=== PATIENT | male | born 1970 | race Caucasian/White ===

== ENCOUNTER 2017-06-03 14:17 | Emergency (ER) | payer BC ==
[~2017-06-03] VITALS: Ht 185.4 cm; Wt 122.7 kg
[~2017-06-03 14:17] MED LIST: ASPIRIN 81M81 MG/TA2 PO; ASPIRIN E.C. 8181 MG PO; BENADRYL25 M2 PO; CARDI-OMEGA1000 MG PO; COZAAR100 MG PO; DILAUDID 2MG TAB2 MG PO; ELIMITE TOP; FISH OIL CONCEN1 SGL PO; GLUCOPHAGE1000 MG PO; GLUCOPHAGE500 MG PO; HCTZ 25MG TAB25 MG PO; LIPITOR 40MG TA40 MG PO; LOPID 600M600 MG/TAB PO; LOPID600 MG PO; LOPRESSOR100 MG PO; MEDROL 4MG DOSPA4 MG PO; NORVASC 5MG5 MG/TAB PO; NORVASC5 MG PO; PERCOCET 325 MG1 TA2 PO; PREDNISONE20 MG PO; VALIUM2 MG PO; ZANTAC 7575 MG PO; ZOCOR80 MG PO
[2017-06-03 14:24] VITALS: TEMP 99
[2017-06-03] MEDS ORDERED: LASIX 20MG TABL20 MG PO (14:36)
[2017-06-03] MEDS ORDERED: CANA300T PO (14:36)
[2017-06-03 14:43] LABS: BASO % 0.4 % (0.0-2.0); EOS # 0.2 (0.0-0.7); EOS % 1.9 % (0-4.0); GRAN # 5.8 (1.4-6.5); GRAN % 69.6 % (42.2-75.2); HEMATOCRIT 41.6 % (42.0-52.0); LYMPH # 1.8 (1.2-3.4); LYMPH % 21.4 % (20.0-51.0); MEAN CELL VOLUME 91 fl (80.0-100.0); MEAN CORPUSCULAR HEMOGLOBIN 31 pg (27.0-31.0); MEAN CORPUSCULAR HGB CONC 34 g/dl (33.0-37.0); MEAN PLATELET VOLUME 8.4 fl (7.4-10.4); MONO # 0.5 (0.1-0.6); MONO % 6.5 % (1.7-9.3); PLATELET COUNT 233 K/mm3 (130-400); RED BLOOD COUNT 4.55 M/mm3 (4.20-5.60); WHITE BLOOD COUNT 8.3 K/mm3 (4.8-10.8)
[2017-06-03 14:54] LABS: ADJUSTED CALCIUM 9.6 mg/dL (8.4-10.2); ALANINE AMINOTRANSFERASE 52 U/L (21-72); ALBUMIN 4.6 gm/dL (3.5-5.0); ALKALINE PHOSPHATASE 100 U/L (50-136); ANION GAP 17 mmol/L (7-16); BLOOD UREA NITROGEN 24 mg/dL (9-20); CALCIUM 10.1 mg/dL (8.4-10.2); CARBON DIOXIDE 19 mmol/L (22-30); CHLORIDE 102 mmol/L (98-107); CREATININE, serum 1.37 mg/dL (0.66-1.25); GLUCOSE 230 mg/dL (74-106); LIPASE 231 U/L (23-300); POTASSIUM 4.1 mmol/L (3.4-5.0); SODIUM 138 mmol/L (137-145); TOTAL PROTEIN 7.7 gm/dL (6.4-8.2)
[2017-06-03 15:04] LABS: B-TYPE NATRIURETIC PEPTIDE 71 pg/mL (0-125)
[2017-06-03 15:07] LABS: TROPONIN-I < 0.012 ng/mL (0.000-0.034)
[2017-06-03 19:28] VITALS: BP 111/63; PULSE 67
== END 2017-06-03 19:24 | disposition home or self-care (01) ==
LOC: COL.ER 14:17
PROVIDERS: Emergency Medicine
DX: R07.89 Other chest pain (principal); I10 Essential (primary) hypertension; E11.9 Type 2 diabetes mellitus without complications; E78.5 Hyperlipidemia, unspecified; Z79.82 Long term (current) use of aspirin; Z79.84 Long term (current) use of oral hypoglycemic drugs
CPT/HCPCS: J2060; J7030

== ENCOUNTER 2018-08-31 10:29 | Day surgery (SDC) | payer BC ==
[~2018-08-31] VITALS: Ht 185.4 cm; Wt 110.2 kg
[~2018-08-31 10:29] MED LIST changes: +CANA300T PO; +LASIX 20MG TABL20 MG PO
[2018-08-31 10:51] VITALS: BP 116/73; PULSE 61; TEMP 98.4
[2018-08-31 12:33] VITALS: BP 95/68; PULSE 64; TEMP 98.3
--- NOTE | 2018-08-31 12:33 | NUR ---
Pt returns from endo procedure. Pt ambulates from cart to recliner with RN assist. Pt alert and oriented. Monitors on and alarms set. Call light within reach. Pt requests water and crackers. Pt denies pain or nausea. present in room. Report received from MARIANNE Sandra.
[2018-08-31 12:45] VITALS: BP 94/57; PULSE 62
--- NOTE | 2018-08-31 12:45 | NUR ---
Pt taking food and drink well. No complaints voiced.
[2018-08-31 13:00] VITALS: BP 98/51; PULSE 60
--- NOTE | 2018-08-31 13:00 | NUR ---
Discharge instructions given to patient and . All questions answered to their satisfaction. Handed to them are a thank you card, discharge instructions, diagnosis information, and a discharge med sheet.
--- NOTE | 2018-08-31 13:05 | NUR ---
Pt transferred out of hospital via wheelchair and Maddy, assist, to private vehicle driven by .
[2018-09-01] MEDS ORDERED: PREDNISONE20 MG PO (16:10)
[2018-09-01] MEDS ORDERED: GREER S GOO TOP (16:10)
[2018-09-03] MEDS ORDERED: DOXYCYCLINE 10100 MG PO (19:09)
== END 2018-08-31 13:05 | disposition home or self-care (01) ==
LOC: SDCO 10:29
DX: K92.1 Melena (principal); K64.1 Second degree hemorrhoids; K59.00 Constipation, unspecified; K76.0 Fatty (change of) liver, not elsewhere classified; I10 Essential (primary) hypertension; E78.00 Pure hypercholesterolemia, unspecified; E11.9 Type 2 diabetes mellitus without complications; D64.9 Anemia, unspecified; Z79.84 Long term (current) use of oral hypoglycemic drugs; Z79.82 Long term (current) use of aspirin
CPT/HCPCS: J2250; J3010; J7030

== ENCOUNTER 2018-09-01 14:04 | Emergency (ER) | payer BC ==
[~2018-09-01] VITALS: Ht 185.4 cm; Wt 109.5 kg
[2018-09-01 14:26] VITALS: BP 116/56; PULSE 68; TEMP 98.9
[2018-09-01] MEDS ORDERED: GREER S GOO TOP (16:10)
[2018-09-01] MEDS ORDERED: PREDNISONE20 MG PO (16:10)
[2018-09-03] MEDS ORDERED: DOXYCYCLINE 10100 MG PO (19:09)
== END 2018-09-01 16:27 | disposition home or self-care (01) ==
LOC: COL.ER 14:04
DX: L20.9 Atopic dermatitis, unspecified (principal); E11.9 Type 2 diabetes mellitus without complications; I10 Essential (primary) hypertension; E78.5 Hyperlipidemia, unspecified; Z79.84 Long term (current) use of oral hypoglycemic drugs; Z79.82 Long term (current) use of aspirin

== ENCOUNTER 2019-02-26 17:55 | Emergency (ER) | payer BC ==
[~2019-02-26] VITALS: Ht 185.4 cm; Wt 105.5 kg
[~2019-02-26 17:55] MED LIST changes: +DOXYCYCLINE 10100 MG PO; +GREER S GOO TOP
[2019-02-26 18:07] VITALS: TEMP 97.1
[2019-02-26 19:46] VITALS: BP 113/64; PULSE 81
== END 2019-02-26 19:46 | disposition home or self-care (01) ==
LOC: COL.ER 17:55
DX: L02.215 Cutaneous abscess of perineum (principal); E11.9 Type 2 diabetes mellitus without complications; I10 Essential (primary) hypertension; F17.210 Nicotine dependence, cigarettes, uncomplicated; Z98.890 Other specified postprocedural states; Z79.82 Long term (current) use of aspirin; Z79.84 Long term (current) use of oral hypoglycemic drugs

== ENCOUNTER 2019-06-03 07:11 | Observation (INO) | payer BC ==
[~2019-06-03] VITALS: Ht 185.4 cm; Wt 103.5 kg
[2019-06-03 08:20] LABS: BASO % 0.3 % (0.0-2.0); EOS # 0.1 (0.0-0.7); GRAN % 76.3 % (42.2-75.2); HEMOGLOBIN 10.4 g/dl (13.5-18.0); LYMPH # 0.8 (1.2-3.4); LYMPH % 12.8 % (20.0-51.0); MEAN CELL VOLUME 106 fl (80.0-100.0); MEAN CORPUSCULAR HEMOGLOBIN 36 pg (27.0-31.0); MEAN CORPUSCULAR HGB CONC 34 g/dl (33.0-37.0); MEAN PLATELET VOLUME 8.6 fl (7.4-10.4); MONO # 0.5 (0.1-0.6); MONO % 8.1 % (1.7-9.3); PLATELET COUNT 161 K/mm3 (130-400); RED BLOOD COUNT 2.91 M/mm3 (4.20-5.60); REDCELL DISTRIBUTION WIDTH-CV 13.9 % (11.5-14.5)
[2019-06-03 08:22] LABS: HEMATOCRIT 30.9 % (42.0-52.0)
[2019-06-03 08:34] LABS: ALBUMIN 4.3 gm/dL (3.5-5.0); BILIRUBIN,TOTAL 0.4 mg/dL (0.0-1.0); C-REACTIVE PROTEIN 3.9 mg/dL (0.0-0.9); CALCIUM 9.5 mg/dL (8.4-10.2); CREATININE, serum 2.81 (0.66-1.25); POTASSIUM 4.5 mmol/L (3.4-5.0); TOTAL PROTEIN 7.3 gm/dL (6.4-8.2)
[2019-06-03 13:45] VITALS: BP 134/82; PULSE 61; TEMP 97.7
--- NOTE | 2019-06-03 13:58 | NUR ---
Pt up to ROOM 351. Pt A&O, independent. Admission, pharmacy, med rec completed. Pt on room air. Denies chest pain, dizziness, N/V/D at this time. 20g RFA IV flushes with no complications. C/O SOB and cough. Hospitalist aware of Pts arrival to floor. No needs voiced at this time. Call light within reach.
--- NOTE | 2019-06-03 15:18 | NUR ---
Pt up to room 318. Admission, med rec, allergies completed. Pt A&O. Denies chest pain, dizziness, SOB, N/V/D at this time. C/O right leg weakness and asking about food. Pt getting sleepy by end of admission process. No other concerns voiced at this time. Call light within reach, hospitalist aware of Pt arrival to floor.
[2019-06-03 15:50] VITALS: BP 115/62; PULSE 60; TEMP 98.7
[2019-06-03 17:57] LABS: COLLECTION METHOD CLEAN CATCH
[2019-06-03 18:16] LABS: PH 6 (5-8); SQUAMOUS EPITHELIAL None Seen /hpf; URINE APPEARANCE Clear; URINE BACTERIA None Seen /hpf; URINE BILIRUBIN Negative (NEGATIVE); URINE BLOOD 1+ (NEGATIVE); URINE COLOR Straw; URINE GLUCOSE 2+ (NEGATIVE); URINE KETONE Negative (NEGATIVE); URINE LEUKOCYTE ESTERASE Negative (NEGATIVE); URINE NITRATE Negative (NEGATIVE); URINE PROTEIN(semi-quant) 1+ (NEGATIVE); URINE RBC 0-2 /hpf; URINE UROBILINOGEN Negative (NEGATIVE)
[2019-06-03 20:43] VITALS: BP 123/71; PULSE 64; TEMP 98.6
[2019-06-04] VITALS (7 sets, daily range): BP systolic 99–140; BP diastolic 56–79; PULSE 57–65; TEMP 97.6–99
[2019-06-04 06:34] LABS: BASO % 0.4 % (0.0-2.0); EOS # 0.2 (0.0-0.7); EOS % 3.5 % (0-4.0); GRAN # 3.5 (1.4-6.5); GRAN % 63.7 % (42.2-75.2); LYMPH # 1.3 (1.2-3.4); LYMPH % 22.9 % (20.0-51.0); MEAN CELL VOLUME 107 fl (80.0-100.0); MEAN CORPUSCULAR HEMOGLOBIN 35 pg (27.0-31.0); MEAN CORPUSCULAR HGB CONC 33 g/dl (33.0-37.0); MEAN PLATELET VOLUME 8.8 fl (7.4-10.4); MONO # 0.5 (0.1-0.6); MONO % 9.1 % (1.7-9.3); PLATELET COUNT 177 K/mm3 (130-400); RED BLOOD COUNT 2.87 M/mm3 (4.20-5.60)
[2019-06-04 06:50] LABS: CALCIUM 9.4 mg/dL (8.4-10.2); CREATININE, serum 2.22 (0.66-1.25); POTASSIUM 4.2 mmol/L (3.4-5.0)
[2019-06-04 07:07] LABS: HEMATOCRIT 30.8 % (42.0-52.0)
--- NOTE | 2019-06-04 09:30 | NUR ---
Patient sitting on the side of the bed. A&Ox4, denies pain and discomfort. VSS. IV CDI, fluids infusing, jyoti wrapped. Patient does not have a productive cough. Patient on contact precautions. No further needs expressed from patient. Call light within reach
--- NOTE | 2019-06-04 10:04 | NUR ---
MARAH met with the patient to discuss discharge plan. The patient lives in [place] with his , Annie (ph#[phone]). He reports independence with ADLs and does not have any DME. The patient's PCP is Dr. Bruna Goel and he receives his medications at [facility]. He reports no difficulties obtaining his meds. The patient does not have advanced directives, but he was interested in obtaining a form for DPOA-HC. MARAH provided. The patient plans to return back home with his upon discharge. No additional needs at this time.
[2019-06-04 13:21] LABS: CREATININE, serum 2.08 (0.66-1.25)
[2019-06-04 13:32] LABS: URINE PROTEIN:CREAT RATIO 1.66 (0.00-0.14)
[2019-06-04 13:34] LABS: FRACTIONAL EXCRETION OF NA+ 3.4 %
--- NOTE | 2019-06-04 16:52 | NUR ---
Pt stable denies increased SOB. Pt also denies pain at this time. Pt has call light in reach and denies needs at this time. Pt ordering supper now. Pt I/O being documented.
--- NOTE | 2019-06-04 18:21 | NUR ---
Pt moved to [facility] d/t jenny warning with mask on for droplet precaution.
--- NOTE | 2019-06-04 19:12 | NUR ---
Pt report given to Kimberly LOPES.
[2019-06-05 03:33] VITALS: BP 120/80; PULSE 65; TEMP 98.9
[2019-06-05 06:29] LABS: CALCIUM 9.3 mg/dL (8.4-10.2); POTASSIUM 4.3 mmol/L (3.4-5.0)
--- NOTE | 2019-06-05 07:47 | NUR ---
Received report from MARIANNE Harris.
--- NOTE | 2019-06-05 08:34 | NUR ---
Pt awake and alert upon entry, no C/O pain at this time, shift assessments complete, left Pt call light in reach, bed in lowest position.
[2019-06-05 09:12] VITALS: BP 133/72; PULSE 66; TEMP 98.7
[2019-06-05 12:33] VITALS: BP 139/81; PULSE 61; TEMP 98.1
[2019-06-05] MEDS ORDERED: ZITHROMAX500 M2 PO (13:07)
--- NOTE | 2019-06-05 14:13 | NUR ---
Pt discharged to home, escorted to the entrance, left facility via private auto.
== END 2019-06-05 14:14 | disposition home or self-care (01) ==
LOC: COL.ER 07:11 → MEDICAL 11:53
PROVIDERS: Family Medicine; Internal Medicine Nephrology; Physician Assistant; ADMIT Hospitalist
DX: J18.8 Other pneumonia, unspecified organism (principal); N18.9 Chronic kidney disease, unspecified; I12.9 Hypertensive chronic kidney disease with stage 1 through stage 4 chronic kidney disease, or unspecified chronic kidney disease; E78.5 Hyperlipidemia, unspecified; E11.9 Type 2 diabetes mellitus without complications; L40.9 Psoriasis, unspecified; K64.8 Other hemorrhoids; G47.33 Obstructive sleep apnea (adult) (pediatric); R63.4 Abnormal weight loss; F17.290 Nicotine dependence, other tobacco product, uncomplicated; Z88.8 Allergy status to other drugs, medicaments and biological substances; Z91.048 Other nonmedicinal substance allergy status; Z79.84 Long term (current) use of oral hypoglycemic drugs; Z79.82 Long term (current) use of aspirin; Z80.3 Family history of malignant neoplasm of breast
CPT/HCPCS: 99232-AI; A4216; G0378; J0696; J7030

== ENCOUNTER 2019-08-28 15:57 | Emergency (ER) | payer BC ==
[~2019-08-28] VITALS: Ht 185.4 cm; Wt 112.7 kg
[~2019-08-28 15:57] MED LIST changes: +ZITHROMAX500 M2 PO
[2019-08-28 16:05] VITALS: TEMP 97
[2019-08-28 16:37] LABS: BASO % 0.2 % (0.0-2.0); EOS # 0.2 (0.0-0.7); EOS % 3.9 % (0-4.0); GRAN # 3.8 (1.4-6.5); HEMOGLOBIN 10.3 g/dl (13.5-18.0); LYMPH # 1.6 (1.2-3.4); LYMPH % 26.1 % (20.0-51.0); MEAN CELL VOLUME 100 fl (80.0-100.0); MEAN CORPUSCULAR HEMOGLOBIN 33 pg (27.0-31.0); MEAN CORPUSCULAR HGB CONC 33 g/dl (33.0-37.0); MEAN PLATELET VOLUME 8.7 fl (7.4-10.4); MONO # 0.5 (0.1-0.6); MONO % 8.6 % (1.7-9.3); PLATELET COUNT 169 K/mm3 (130-400); RED BLOOD COUNT 3.08 M/mm3 (4.20-5.60); REDCELL DISTRIBUTION WIDTH-CV 12.6 % (11.5-14.5)
[2019-08-28 16:43] LABS: HEMATOCRIT 30.9 % (42.0-52.0)
[2019-08-28 16:57] LABS: ALBUMIN 4.1 gm/dL (3.5-5.0); BILIRUBIN,TOTAL 0.5 mg/dL (0.0-1.0); CALCIUM 9.5 mg/dL (8.4-10.2); CREATININE, serum 2.73 (0.66-1.25); MAGNESIUM 1.8 mg/dL (1.6-2.3); POTASSIUM 3.9 mmol/L (3.4-5.0)
[2019-08-28 17:04] LABS: COLLECTION METHOD CLEAN CATCH
[2019-08-28 17:09] LABS: PH 6 (5-8); SQUAMOUS EPITHELIAL None Seen /hpf; URINE APPEARANCE Clear; URINE BACTERIA None Seen /hpf; URINE BILIRUBIN Negative (NEGATIVE); URINE BLOOD 1+ (NEGATIVE); URINE COLOR Straw; URINE GLUCOSE Negative (NEGATIVE); URINE KETONE Negative (NEGATIVE); URINE LEUKOCYTE ESTERASE Negative (NEGATIVE); URINE NITRATE Negative (NEGATIVE); URINE PROTEIN(semi-quant) 1+ (NEGATIVE); URINE RBC 0-2 /hpf; URINE UROBILINOGEN Negative (NEGATIVE)
[2019-08-28 18:05] LABS: URINE PROTEIN:CREAT RATIO 1.7 (0.00-0.14)
[2019-08-28] MEDS ORDERED: LASIX 20MG TABL20 MG PO (18:12)
[2019-08-28 18:14] VITALS: BP 148/95; PULSE 82
== END 2019-08-28 18:21 | disposition home or self-care (01) ==
LOC: COL.ER 15:57
PROVIDERS: Emergency Medicine
DX: M79.89 Other specified soft tissue disorders (principal); E11.22 Type 2 diabetes mellitus with diabetic chronic kidney disease; I12.9 Hypertensive chronic kidney disease with stage 1 through stage 4 chronic kidney disease, or unspecified chronic kidney disease; N18.9 Chronic kidney disease, unspecified; F17.210 Nicotine dependence, cigarettes, uncomplicated; Z79.82 Long term (current) use of aspirin

== ENCOUNTER → 2021-10-19 | Outpatient (CLI) | payer OTHER ==
[~2021-10-19] MED LIST changes: +B COMPLEX & B121 TAB; +COZAAR 50MG50 MG/TAB PO; +FLEXERIL 1010 MG/TAB PO; +FOLIC ACID800 MCG PO; +HYGROTON 2525 MG/TAB; +TREMFYA100 MG/1 M SQ; +TRULICITY0.75 MG/0. SQ
== END ==
LOC: MHCPAIN 13:29
DX: M47.816 Spondylosis without myelopathy or radiculopathy, lumbar region (principal); M53.3 Sacrococcygeal disorders, not elsewhere classified; M54.16 Radiculopathy, lumbar region; M48.062 Spinal stenosis, lumbar region with neurogenic claudication; M96.1 Postlaminectomy syndrome, not elsewhere classified
CPT/HCPCS: G0463

== ENCOUNTER → 2021-10-28 | Outpatient (CLI) | payer OTHER | LOC: MHCPAIN 07:58 | DX: M47.817 Spondylosis without myelopathy or radiculopathy, lumbosacral region (principal); M96.1 Postlaminectomy syndrome, not elsewhere classified; M54.16 Radiculopathy, lumbar region | CPT/HCPCS: J1100; Q9967 ==

== ENCOUNTER → 2021-11-17 | Outpatient (CLI) | payer OTHER | LOC: MHCPAIN 13:08 | DX: M47.816 Spondylosis without myelopathy or radiculopathy, lumbar region (principal); M53.3 Sacrococcygeal disorders, not elsewhere classified; M54.16 Radiculopathy, lumbar region; M96.1 Postlaminectomy syndrome, not elsewhere classified | CPT/HCPCS: G0463 ==

== ENCOUNTER → 2021-11-29 | Outpatient (CLI) | payer OTHER | LOC: MHCPAIN 12:54 | DX: M47.817 Spondylosis without myelopathy or radiculopathy, lumbosacral region (principal); M53.3 Sacrococcygeal disorders, not elsewhere classified; M54.16 Radiculopathy, lumbar region | CPT/HCPCS: J1100; Q9967 ==

== ENCOUNTER 2022-01-21 13:26 | Observation (INO) | payer OTHER ==
[~2022-01-21] VITALS: Ht 185.4 cm; Wt 123.0 kg
[2022-01-21 16:10] LABS: BASO % 0.4 % (0.0-2.0); EOS # 0.1 K/mm3 (0.0-0.7); EOS % 0.8 % (0.0-4.0); GRAN # 5.9 K/mm3 (1.4-6.5); GRAN % 77.2 % (42.2-75.2); LYMPH % 13.3 % (20.0-51.0); MEAN CELL VOLUME 94 fl (80.0-100.0); MEAN CORPUSCULAR HGB CONC 34 g/dl (33.0-37.0); MEAN PLATELET VOLUME 8.8 fl (7.4-10.4); MONO # 0.6 K/mm3 (0.1-0.6); PLATELET COUNT 171 K/mm3 (130-400); RED BLOOD COUNT 2.89 M/mm3 (4.20-5.60); REDCELL DISTRIBUTION WIDTH-CV 14.3 % (11.5-14.5)
[2022-01-21 16:13] LABS: HEMATOCRIT 27.2 % (42.0-52.0); HEMOGLOBIN 9.3 g/dl (13.5-18.0); MEAN CORPUSCULAR HEMOGLOBIN 32 pg (27-31)
[2022-01-21 16:19] LABS: INR 0.9 (0.8-3.0); PROTHROMBIN TIME 10.3 SECONDS (9.7-12.8)
[2022-01-21 16:22] LABS: PARTIAL THROMBOPLASTIN TIME 29.1 SECONDS (26.0-37.0)
[2022-01-21 16:28] LABS: ALANINE AMINOTRANSFERASE 34 U/L (0-55); ALBUMIN 3.1 gm/dL (3.5-5.0); ALKALINE PHOSPHATASE 52 U/L (40-150); ANION GAP 14 mmol/L (7-16); AST,SGOT 31 U/L (5-34); BILIRUBIN,TOTAL 0.5 mg/dL (0.2-1.2); BLOOD UREA NITROGEN 33 mg/dL (8-26); CALCIUM 10.1 mg/dL (8.4-10.2); CARBON DIOXIDE 26 mmol/L (22-29); CHLORIDE 95 mmol/L (98-107); CREATININE, serum 3.32 mg/dL (0.72-1.25); GLUCOSE 159 mg/dL (70-99); POTASSIUM 4.7 mmol/L (3.5-4.5); SODIUM 135 mmol/L (136-145); TOTAL PROTEIN 6.4 gm/dL (6.2-8.1)
[2022-01-21 16:36] LABS: TROPONIN-I < 0.010 ng/mL (0.00-0.033)
[2022-01-21] MEDS ORDERED: LOPRESSOR 550 MG/TAB PO (21:13)
[2022-01-21] MEDS ORDERED: VITAMIND3 5000 PO (21:14)
[2022-01-21] MEDS ORDERED: VITAMIN B-625 MG (21:15)
[2022-01-21] MEDS ORDERED: MAG-OX 400400 MG/TAB PO (21:15)
[2022-01-21] MEDS ORDERED: NEURONTIN100 MG/CAP PO (21:16)
--- NOTE | 2022-01-21 22:15 | NUR ---
Adnitted to medical floor from ER- has syncopal episode - "I passed out", Alert/oriented x4, VSS, on Seizure precautions, pads on bed, Will call for any assistance out of bed- urinal given to patient at this time- Margie ADEN here to write orders, will be NPO after MN, Tele on, IV fluids of NS at 125cc/hr. Given sandwich box- has not had supper yet
[2022-01-21] MEDS ORDERED: BRILINTA90 MG PO (23:02)
[2022-01-21 23:23] VITALS: BP 122/57; PULSE 72; TEMP 98.7
[2022-01-22 01:42] LABS: COLLECTION METHOD CLEAN CATCH
[2022-01-22 01:52] LABS: PH 6 (5-8); SQUAMOUS EPITHELIAL None Seen /hpf (0-10); URINE APPEARANCE Clear (CLEAR/HAZY); URINE BACTERIA None Seen /hpf (NONE SEEN); URINE BILIRUBIN Negative (NEGATIVE); URINE BLOOD 1+ (NEGATIVE); URINE COLOR Yellow (YELLOW); URINE GLUCOSE Negative (NEGATIVE); URINE KETONE Negative (NEGATIVE); URINE LEUKOCYTE ESTERASE Negative (NEGATIVE); URINE NITRATE Negative (NEGATIVE); URINE PROTEIN(semi-quant) 2+ (NEGATIVE); URINE RBC None Seen /hpf (0-2); URINE UROBILINOGEN Negative (NEGATIVE)
[2022-01-22 03:59] VITALS: BP 134/58; PULSE 80
--- NOTE | 2022-01-22 06:11 | NUR ---
Quiet night, VSS, Tele on- no changes- slept well, IV fluids of NS at 125cc/hr, also Margie called regarding MG level of 1.5,order to give dose of Magnesium- NPO
[2022-01-22 06:46] LABS: BASO % 0.5 % (0.0-2.0); EOS # 0.1 K/mm3 (0.0-0.7); EOS % 1.5 % (0.0-4.0); GRAN # 3.9 K/mm3 (1.4-6.5); GRAN % 66.8 % (42.2-75.2); LYMPH # 1.3 K/mm3 (1.2-3.4); LYMPH % 21.5 % (20.0-51.0); MEAN CELL VOLUME 96 fl (80.0-100.0); MEAN CORPUSCULAR HGB CONC 34 g/dl (33.0-37.0); MEAN PLATELET VOLUME 8.9 fl (7.4-10.4); MONO # 0.5 K/mm3 (0.1-0.6); MONO % 9.2 % (1.7-9.3); PLATELET COUNT 150 K/mm3 (130-400); RED BLOOD COUNT 2.73 M/mm3 (4.20-5.60); REDCELL DISTRIBUTION WIDTH-CV 14.6 % (11.5-14.5)
[2022-01-22 07:05] LABS: CALCIUM 9.9 mg/dL (8.4-10.2); CREATININE, serum 3.17 mg/dL (0.72-1.25); POTASSIUM 3.7 mmol/L (3.5-4.5)
[2022-01-22 07:17] LABS: HEMATOCRIT 26.2 % (42.0-52.0); HEMOGLOBIN 8.8 g/dl (13.5-18.0); MEAN CORPUSCULAR HEMOGLOBIN 32 pg (27-31)
[2022-01-22 08:00] VITALS: BP 129/59; PULSE 75; TEMP 98.6
--- NOTE | 2022-01-22 08:26 | NUR ---
PATIENT ALERT, ORIENTED. AWOKEN FOR FULL ASSESSMENT. NEUROLOGICALLY INTACT. NO COMPLAINTS OF PAIN. IN GOOD SPIRITS. AWARE OF SITUATION AND CONCERNS. SCHEDULED FOR EGD AND FLEXSIG AT 0930 TODAY. 300CC TAP WATER ENEMA GIVEN PER DR. WARREN. RETAINED FOR APPROXIMATELY 5 MIN, TOLERATED ADMINISTRATION WELL. NO COMPLAINTS OF PAIN. NORMAL DISCOMFORT. STOOL BLOODY. MARTY RED BLOOD. PATIENT HAS UNSTEADY GAIT, AND NOTABLE DISCOMFORT WITH WALKING. PATIENT AWARE OF DIZZINESS OR DISORIENTATION WHEN SITTING UP OR STANDING. USES URINAL APPROPRIATELY. NO C/O DISCOMFORT ON URINATION. 1000ML BAG ON GRAVITY TUBING HUNG FOR PREPROCEDURE. IV PATENT. CONSENTS SIGNED AN ON CHART. INSULIN SLIDING SCALE NOT REQUIRED. PATIENT HAS BEEN NPO SINCE MIDNIGHT. ADVISED TO HAVE FAMILY BRING IN CPAP FOR OVERNIGHT USE SMALL PAUSES AND REDUCED HR NOTED THIS MORNING ON TELE. PATIENT ASKING FOR CHEWING TOBACCO OR NICOTINE GUM. REFUSED NICOTINE PATCH, C/O UPSET STOMACH AND ITCHING AT SITES. ADVISED TO HOLD OFF UNTIL AFTER PROCEDURE, CONSIDERING VASOCONSTRICTING PROPERTIES.
[2022-01-22 10:56] VITALS: BP 128/84; PULSE 88
--- NOTE | 2022-01-22 11:53 | NUR ---
SW attempted to complete intake. Nurse provided patient was in for a procedure. SW will attempt again later to assist with completion of intake.
--- NOTE | 2022-01-22 12:51 | NUR ---
PATIENT EDUCATION PROVIDED, DISCHARGE INSTRUCTIONS AND ORDERS PROVIDED. IV AND TELE REMOVED. FAMILY AT BEDSIDE. PATIENT WHEELED OUT TO ER DROP OFF.
== END 2022-01-22 12:52 | disposition home or self-care (01) ==
LOC: COL.ER 13:26 → MEDICAL 19:12
PROVIDERS: Internal Medicine Gastroenterology; Nurse Practitioner Family; Physician Assistant; ADMIT Internal Medicine
DX: D50.0 Iron deficiency anemia secondary to blood loss (chronic) (principal); K92.1 Melena; K64.1 Second degree hemorrhoids; K29.70 Gastritis, unspecified, without bleeding; F17.220 Nicotine dependence, chewing tobacco, uncomplicated
CPT/HCPCS: 99223-AI; C9113; G0378; J1815; J2704; J3475; J7030

== ENCOUNTER 2022-01-23 10:35 | Emergency (ER) | payer OTHER ==
[~2022-01-23] VITALS: Ht 185.4 cm; Wt 122.7 kg
[~2022-01-23 10:35] MED LIST changes: +BRILINTA90 MG PO; +LOPRESSOR 550 MG/TAB PO; +MAG-OX 400400 MG/TAB PO; +NEURONTIN100 MG/CAP PO; +VITAMIN B-625 MG; +VITAMIND3 5000 PO
[2022-01-23 10:53] VITALS: TEMP 98.4
[2022-01-23 11:22] LABS: BASO % 0.4 % (0.0-2.0); EOS # 0.1 K/mm3 (0.0-0.7); EOS % 1.8 % (0.0-4.0); GRAN # 3.4 K/mm3 (1.4-6.5); GRAN % 66.4 % (42.2-75.2); LYMPH # 1.1 K/mm3 (1.2-3.4); LYMPH % 22.4 % (20.0-51.0); MEAN CELL VOLUME 97 fl (80.0-100.0); MEAN CORPUSCULAR HGB CONC 33 g/dl (33.0-37.0); MEAN PLATELET VOLUME 8.5 fl (7.4-10.4); MONO # 0.4 K/mm3 (0.1-0.6); PLATELET COUNT 144 K/mm3 (130-400); RED BLOOD COUNT 2.64 M/mm3 (4.20-5.60); REDCELL DISTRIBUTION WIDTH-CV 14.5 % (11.5-14.5)
[2022-01-23 11:23] LABS: HEMATOCRIT 25.6 % (42.0-52.0); HEMOGLOBIN 8.5 g/dl (13.5-18.0); MEAN CORPUSCULAR HEMOGLOBIN 32 pg (27-31)
[2022-01-23 11:41] LABS: ALBUMIN 3.1 gm/dL (3.5-5.0); BILIRUBIN,TOTAL 0.4 mg/dL (0.2-1.2); CALCIUM 9.5 mg/dL (8.4-10.2); CREATININE, serum 3.21 mg/dL (0.72-1.25); POTASSIUM 4.2 mmol/L (3.5-4.5); TOTAL PROTEIN 6.1 gm/dL (6.2-8.1)
[2022-01-23 12:07] VITALS: BP 136/84; PULSE 77
== END 2022-01-23 12:07 | disposition home or self-care (01) ==
LOC: COL.ER 10:35
PROVIDERS: Emergency Medicine
DX: K64.9 Unspecified hemorrhoids (principal); D64.9 Anemia, unspecified; Z79.01 Long term (current) use of anticoagulants
CPT/HCPCS: J7040

== ENCOUNTER 2022-01-29 08:50 | Outpatient (CLI) | payer OTHER ==
[~2022-01-29] VITALS: Ht 185.4 cm; Wt 121.8 kg
[2022-01-29 10:57] VITALS: BP 111/65; PULSE 71; TEMP 98.6
--- NOTE | 2022-01-29 10:59 | NUR ---
PT ARRIVED TO THE MEDICAL FLOOR APPROXIMATE TIME OF 914. IV WAS STARTED 18G IN RIGHT AC. PT HOOKED UP TO BLOOD WITH AN INITIAL STARTING RATE OF 60ML/HR. AFTER FIRST 15 MINUTES WILL ASSESS THE PATIENT'S TOLERANCE AND INCREASE TOLERATED. NO OTHER CONCERNS AT THIS TIME.
[2022-01-29 11:13] VITALS: BP 120/60; PULSE 71; TEMP 98.4
[2022-01-29 11:28] VITALS: BP 120/74; PULSE 71; TEMP 98.6
[2022-01-29 12:00] VITALS: BP 119/72; PULSE 70; TEMP 98.4
[2022-01-29 13:00] VITALS: BP 137/75; PULSE 69; TEMP 98.6
[2022-01-29 13:27] VITALS: BP 131/81; PULSE 71; TEMP 98.6
== END 2022-01-29 13:30 | disposition home or self-care (01) ==
LOC: MEDICAL 08:50 → EUO 08:50
DX: D62 Acute posthemorrhagic anemia (principal)
CPT/HCPCS: OP; P9016